=== PATIENT | male | born 1985 | race Caucasian/White ===

== ENCOUNTER 2020-10-24 16:41 | Inpatient (IN) | payer SELFPAY ==
--- NOTE | 2020-10-24 16:43 | XR_ITS ---
WS: [id number] KUB, 10/24/2020 Clinical Data: abdominal pain Comparison: None. Findings: No abnormal intraabdominal masses or calcifications are seen. There is no dilatated small bowel or ev idence of obstruction. The bladder is full. XR/XR KUB [id number] Impression: Negative KUB.
[2020-10-24 17:28] VITALS: BP 165/113; PULSE 90; RESP 19; TEMP 36.9; O2SAT 97; BMI 27.6
--- NOTE | 2020-10-24 20:18 | W.ED.ABDPA2 ---
Documented by User: DUNCAN Guo 10/24/20 22:01 HPI - Abdominal Pain General: Chief Complaint: Abdominal Pain Stated Complaint: Abd Pain Time Seen by Provider: 10/24/20 20:14 History of Present Illness: HPI narrative: Patient complains of abdominal pain since Friday. Said is not improved could constantly hurts has been able go to work. Denies fever chills constipation and diarrhea. No history of previous problems. MD elicited complaint: abdominal pain Pertinent past history: none Pain Consistency: constant Location: Diffuse Quality: cramping, aching and fullness Associated Symptoms: Reports no associated symptoms; Denies chills, fever(s), nausea and vomiting Review of Systems Const: Denies: fever(s), chills or body aches Eyes: Denies: change in vision or blurry vision ENMT: Denies: throat pain or nasal congestion Card: Denies: chest pain or dyspnea on exertion Resp: Denies: dyspnea, productive cough or non-productive cough GI: Reports: abdominal pain; Denies: nausea or vomiting : Denies: difficulty urinating Musc: Denies: extremity pain Skin/Breast: Denies: rash Neuro: Denies: headache(s) Psych: Denies: anxiety or depression Subhash/Lymph: Denies: easy bruising PFSH ED PFSH: Medical History Daily consumption of alcohol Smoking addiction Family History (Updated 10/24/20 @ 23:11 by Naeem Hewitt MD) Other Diabetes Social History (Updated 09/26/20 @ 12:20 by Magdalene Ochoa LPN) Smoking and tobacco status: current every day smoker Physical Exam Const: COMMON NORMALS: no acute distress, average body habitus and patient oriented x3 HENMT: COMMON NORMALS: normocephalic HEAD & SCALP: normal to inspection and normocephalic FACE & SINUS: normal facial exam Eye: COMMON NORMALS: conjunctivae normal GENERAL EYE: appearance normal, both eyes and all related structures CONJUNCTIVA: Yes conjunctivae normal Neck/C-Spine: COMMON NORMALS: no JVD Chest: COMMONS NORMALS: normal inspection of the chest Resp: COMMON NORMALS: normal respiratory effort and clear to auscultation bilaterally AUSCULTATION: clear to auscultation bilaterally Cardio: COMMON NORMALS: no JVD, regular rate and regular rhythm RATE: regular rate RHYTHM: regular rhythm GI: COMMON NORMALS: Normal to inspection, nondistended, normoactive bowel sounds present Extremity: COMMON NORMALS: normal to inspection and full ROM Neuro: COMMON NORMALS: patient oriented x3 Course Vital Signs: Vital signs: Vital Signs Temperature 98.5 F 10/24/20 17:28 Pulse Rate 72 10/24/20 22:11 Respiratory Rate 18 10/24/20 22:59 Blood Pressure 166/112 10/24/20 22:11 Pulse Oximetry 98 10/24/20 22:59 MDM - Abdominal Pain MDM Narrative: Medical decision making narrative: Patient now relates after lipase value came back that he does drink regularly and drinks high alcohol content has been doing that for years has not drink last couple days because he has not felt well. Lab Data: Labs: Lab Results 10/24/20 10/24/20 10/24/20 Range/Units 20:20 20:49 20:49 WBC 14.8 H (4.0-10.0) 10^3/ uL RBC 5.38 H (4.1-5.3) 10^6/u L Hgb 18.1 H (11.7-16.6) g/dL Hct 52.6 H (42.0-52.0) % MCV 97.8 H (80-94) fL MCH 33.6 (28.0-34.0) pg MCHC 34.4 (30.0-36.0) g/dL RDW 11.8 L (12.1-15.1) % Plt Count 169 (130-400) 10^3/c mm MPV 10.1 (7.4-10.4) fL Neut % (Auto) 79.3 % Lymph % (Auto) 8.8 % Lynn % (Auto) 10.6 % Eos % (Auto) 0.5 % Baso % (Auto) 0.4 % Neut # (Auto) 11.76 H (1.8-7.7) 10^3/u L Lymph # (Auto) 1.3 (0.8-4.8) 10^3/u L Lynn # (Auto) 1.6 H (0.2-0.9) 10^3/u L Eos # (Auto) 0.1 (0.0-0.8) 10^3/u L Baso # (Auto) 0.1 (0.0-0.1) 10^3/u L Nucleated RBC % (a uto) 0 % Nucleated RBCs # 0.0 /100WBC Sodium 135 L (136-145) mmol/L Potassium 4.7 (3.5-5.1) mmol/L Chloride 99 (98-107) mmol/L Carbon Dioxide 23 (22-29) mmol/L Anion Gap 17.7 (5-19) BUN 10 (6-20) mg/dL Creatinine 0.9 (0.7-1.2) mg/dL GFR Calculation 97.2 (90-130) mL/min Glucose 110 (65-115) mg/dL Calculated Osmolal ity 280 L (285-295) mOsm/k g Calcium 10.0 (8.5-10.5) mg/dL Total Bilirubin 1.1 (0.15-1.2) mg/dL AST 42 H (0-40) U/L ALT 52 H (0-41) U/L Alkaline Phosphata se 81 (40-130) IU/L Total Protein 8.0 (6.6-8.7) g/dL Albumin 4.7 (3.5-5.2) g/dL Globulin 3.3 (1.3-4.6) g/dL Lipase 4779 H (13-60) U/L Urine Color Dark yellow (Yellow) Urine Appearance Hazy A (CLEAR) Urine pH 5.0 (5-7) Ur Specific Gravit y 1.020 (1.005-1.030) Urine Protein 1+ H (Negative) Urine Glucose (UA) Norm (Normal) Urine Ketones 2+ H (Negative) Urine Blood 2+ H (Negative) Urine Nitrate Negative (Negative) Urine Bilirubin Neg (Negative) Urine Urobilinogen Norm (Negative) mg/dL Ur Leukocyte Danelle ase 1+ H (Negative) Urine RBC 0-4 H (0-2) /hpf Urine WBC 15-25 H (0-5) /hpf Ur Squamous Epith Cells 0-4 H (0-5) /hpf Amorphous Sediment Not Reportable Urine Bacteria 2+ H (NONE) /hpf Urine Mucus 2+ /hpf Discharge Plan Discharge Patient Disposition: Admitted As Inpatient Clinical Impression: Acute pancreatitis Condition: Stable Prescriptions: No Action No Known Home Medications RF: 0 Sign Out Sign Out Data: Patient Sign Out occurred on 10/24/20 at 22:35. Patient's care was discussed, and care was transferred from to Randell Joel MD, [facility] [place]. Coding Level of Care Code ED Transmission Specialist for Chg Fwd Exam Comprehensive Documented by User: Randell Joel MD, [facility] 10/24/20 23:11 HPI - Abdominal Pain General: Chief Complaint: Abdominal Pain Stated Complaint: Abd Pain Time Seen by Provider: 10/24/20 20:14 [facility], [facility] ED PFSH: Medical History Daily consumption of alcohol Smoking addiction Family History (Updated 10/24/20 @ 23:11 by Naeem Hewitt MD) Other Diabetes Social History (Updated 09/26/20 @ 12:20 by Magdalene Ochoa LPN) Smoking and tobacco status: current every day smoker Course Consultations: Consultation #1: Discussed the patient with Dr. Hewitt, hospitalist and he kindly accepted the patient to his service. Time: 22:33 Vital Signs: Vital signs: Vital Signs Temperature 98.5 F 10/24/20 17:28 Pulse Rate 72 10/24/20 22:11 Respiratory Rate 18 10/24/20 22:59 Blood Pressure 166/112 10/24/20 22:11 Pulse Oximetry 98 10/24/20 22:59 MDM - Abdominal Pain MDM Narrative: Medical decision making narrative: See the midlevel providers note for complete history and physical examination. I saw this patient and examined him also. Essentially he is a 55-year-old gentleman who drinks a lot of alcohol and developed abdominal pain 2 days ago. Pain is more in his upper abdomen and describes it as a burning sensation. No nausea or vomiting. No diarrhea. Evaluation in the emergency department shows he has acute pancreatitis but no abscess or pseudocyst formation. Lipase Markedly elevated and he is admitted to the hospitalist service for further evaluation and management. He will be treated with intravenous fluids, intravenous analgesia and bowel rest. Lab Data: Labs: Lab Results 10/24/20 10/24/20 10/24/20 Range/Units 20:20 20:49 20:49 WBC 14.8 H (4.0-10.0) 10^3/ uL RBC 5.38 H (4.1-5.3) 10^6/u L Hgb 18.1 H (11.7-16.6) g/dL Hct 52.6 H (42.0-52.0) % MCV 97.8 H (80-94) fL MCH 33.6 (28.0-34.0) pg MCHC 34.4 (30.0-36.0) g/dL RDW 11.8 L (12.1-15.1) % Plt Count 169 (130-400) 10^3/c mm MPV 10.1 (7.4-10.4) fL Neut % (Auto) 79.3 % Lymph % (Auto) 8.8 % Lynn % (Auto) 10.6 % Eos % (Auto) 0.5 % Baso % (Auto) 0.4 % Neut # (Auto) 11.76 H (1.8-7.7) 10^3/u L Lymph # (Auto) 1.3 (0.8-4.8) 10^3/u L Lynn # (Auto) 1.6 H (0.2-0.9) 10^3/u L Eos # (Auto) 0.1 (0.0-0.8) 10^3/u L Baso # (Auto) 0.1 (0.0-0.1) 10^3/u L Nucleated RBC % (a uto) 0 % Nucleated RBCs # 0.0 /100WBC Sodium 135 L (136-145) mmol/L Potassium 4.7 (3.5-5.1) mmol/L Chloride 99 (98-107) mmol/L Carbon Dioxide 23 (22-29) mmol/L Anion Gap 17.7 (5-19) BUN 10 (6-20) mg/dL Creatinine 0.9 (0.7-1.2) mg/dL GFR Calculation 97.2 (90-130) mL/min Glucose 110 (65-115) mg/dL Calculated Osmolal ity 280 L (285-295) mOsm/k g Calcium 10.0 (8.5-10.5) mg/dL Total Bilirubin 1.1 (0.15-1.2) mg/dL AST 42 H (0-40) U/L ALT 52 H (0-41) U/L Alkaline Phosphata se 81 (40-130) IU/L Total Protein 8.0 (6.6-8.7) g/dL Albumin 4.7 (3.5-5.2) g/dL Globulin 3.3 (1.3-4.6) g/dL Lipase 4779 H (13-60) U/L Urine Color Dark yellow (Yellow) Urine Appearance Hazy A (CLEAR) Urine pH 5.0 (5-7) Ur Specific Gravit y 1.020 (1.005-1.030) Urine Protein 1+ H (Negative) Urine Glucose (UA) Norm (Normal) Urine Ketones 2+ H (Negative) Urine Blood 2+ H (Negative) Urine Nitrate Negative (Negative) Urine Bilirubin Neg (Negative) Urine Urobilinogen Norm (Negative) mg/dL Ur Leukocyte Danelle ase 1+ H (Negative) Urine RBC 0-4 H (0-2) /hpf Urine WBC 15-25 H (0-5) /hpf Ur Squamous Epith Cells 0-4 H (0-5) /hpf Amorphous Sediment Not Reportable Urine Bacteria 2+ H (NONE) /hpf Urine Mucus 2+ /hpf Discharge Plan Discharge Patient Disposition: Admitted As Inpatient Clinical Impression: Acute pancreatitis Condition: Stable Prescriptions: No Action No Known Home Medications RF: 0 Sign Out Sign Out Data: Patient Sign Out occurred on 10/24/20 at 22:35. Patient's care was discussed, and care was transferred from to Randell Joel MD, [facility] [place]. Coding Level of Care Code ED Transmission Specialist for Gin Fwd Exam Comprehensive
[2020-10-24 20:43] LABS: Glucose Urine UA Norm (Normal); Protein Urine 1+ (Negative); Urine Appearance Hazy (CLEAR); Urine Color Dark Yellow (Yellow)
[2020-10-24 20:44] LABS: Add Urine Microscopic? YES; Bacteria Urine 2+ /hpf; Bilirubin Urine Neg (Negative); Blood Urine 2+ (Negative); Ketones Urine 2+ (Negative); Leukocyte Esterase Urine 1+ (Negative); Mucus Urine 2+ /hpf; Nitrate Urine Negative (Negative); RBC Urine 0-4 /hpf (0-2); Squamous Epithelial Cell Urine 0-4 /hpf (0-5); Urobilinogen Urine Norm (Negative); WBC Urine 15-25 /hpf (0-5)
[2020-10-24 20:46] LABS: Add Urine Culture? Yes
--- NOTE | 2020-10-24 20:51 | CTR_ITS ---
PROCEDURE INFORMATION: Exam: CT Abdomen And Pelvis With Contrast Exam date and time: 10/24/2020 9:20 PM Age: 35 years old Clinical indication: Abdominal pain; Patient HX: Ruq pain x 3 days; Additional info: Abd pain, hematuria TECHNIQUE: Imaging protocol: Computed tomography of the abdomen and pelvis with intravenous contrast. Total images: 227 Radiation optimization: All CT scans at this facility use at least one of these dose optimization techniques: automated exposure control; mA and/or kV adjustment per patient size (includes targeted exams where dose is matched to clinical indication); or iterative reconstruction. Contrast material: OMNI 300; Contrast volume: 95 ml; Contrast route: INTRAVENOUS (IV); COMPARISON: CR XR KUB [id number] 10/24/2020 4:57 PM RADIATION DOSE METRICS: Total DLP (mGy-cm): 427.03 FINDINGS: Lungs: Limited assessment of the lung bases fails to reveal evidence for active cardiopulmonary process. Liver: Moderate diffuse fatty infiltration of the liver. No visible hepatic mass or cystic structure. Gallbladder and bile ducts: Partial hepatization of the gallbladder. No visible form cholelithiasis. No visible intra or extrahepatic biliary ectasia. Pancreas: Examination reveals evidence of grade 2/5 acute pancreatitis. No visible pseudocyst formation. No associated pancreatic ductal ectasia. No visible choledocholithiasis. Moderate peripancreatic fat inflammatory phlegmonous response. Spleen: Spleen unremarkable. Adrenal glands: Adrenal glands unremarkable. Kidneys and ureters: No hydronephrosis or perinephric fluid. No visible nephrolithiasis. No visible ureterolithiasis. Stomach and bowel: Moderate reactive duodenitis. Nonobstructive bowel pattern. No visible significant generalized adynamic or reactive ileus. Appendix: No evidence of appendicitis. Intraperitoneal space: No visible intraperitoneal ascites. No visible pneumoperitoneum. Vasculature: The abdominal aorta is nonaneurysmal. Portal vein patent. No visible superior mesenteric vein thrombosis. Lymph nodes: Unremarkable. No enlarged lymph nodes. Urinary bladder: Urinary bladder unremarkable. Reproductive: Unremarkable as visualized. Bones/joints: No visible active or acute osseous pathology. Soft tissues: Unremarkable. CT/CT abdomen pelvis w con* [id number] IMPRESSION: 1. Examination reveals evidence of grade 2/5 acute pancreatitis. No visible pseudocyst formation. 2. Moderate peripancreatic fat inflammatory phlegmonous response. 3. Moderate reactive duodenitis. 4. Moderate diffuse fatty infiltration of the liver. 5. Partial hepatization of the gallbladder without formed cholelithiasis. Radiation Dose CTDIVOL = (mGy): DLP = 427.03 (mGy-cm)
[2020-10-24 20:58] LABS: Basophils # 0.1 10^3/uL (0.0-0.1); Basophils % 0.4 %; Eosinophils # 0.1 10^3/uL (0.0-0.8); Eosinophils % 0.5 %; Hematocrit 52.6 % (42.0-52.0); Hemoglobin 18.1 g/dL (11.7-16.6); Lymphocytes # 1.3 10^3/uL (0.8-4.8); Lymphocytes % 8.8 %; Mean Corpuscular HGB Conc 34.4 g/dL (30.0-36.0); Mean Corpuscular Hemoglobin 33.6 pg (28.0-34.0); Mean Corpuscular Volume 97.8 fL (80-94); Mean Platelet Volume 10.1 fL (7.4-10.4); Monocytes # 1.6 10^3/uL (0.2-0.9); Monocytes % 10.6 %; Neutrophils # 11.76 10^3/uL (1.8-7.7); Neutrophils % 79.3 %; Nucleated Red Blood Cells % 0 %; Platelet Count 169 10^3/cmm (130-400); Red Blood Count 5.38 10^6/uL (4.1-5.3); Red Cell Distribution Width 11.8 % (12.1-15.1); White Blood Count 14.8 10^3/uL (4.0-10.0)
[2020-10-24] MEDS: cefTRIAXone 1,000 MG in sodium chloride 0.9% (plus) 50 ML 100 MG IV (21:17)
[2020-10-24] MEDS: ketorolac 60 mg/2 mL INJ 30 MG IVP (21:17)
[2020-10-24 21:22] LABS: Alanine Aminotransferase 52 U/L (0-41); Albumin Level 4.7 g/dL (3.5-5.2); Alkaline Phosphatase 81 IU/L (40-130); Aspartate Amino Transferase 42 U/L (0-40); Blood Urea Nitrogen 10 mg/dL (6-20); Carbon Dioxide 23 mmol/L (22-29); Chloride 99 mmol/L (98-107); Globulin 3.3 g/dL (1.3-4.6); Glomerular Filtration Rate 97.2 mL/min (90-130); Glucose 110 mg/dL (65-115); Osmolality Calculated 280 mOsm/kg (285-295); Sodium 135 mmol/L (136-145); Total Bilirubin 1.1 mg/dL (0.15-1.2)
[2020-10-24 21:38] LABS: Anion Gap 17.7 (5-19); Lipase 4779 U/L (13-60); Potassium 4.7 mmol/L (3.5-5.1)
[2020-10-24] MEDS: iohexol 300 mg/mL 100 mL Btl IV (21:47)
[2020-10-24] MEDS: sodium chloride 0.9% 1,000 ML 999 ML IV (22:07)
[2020-10-24 22:09] VITALS: RESP 18; O2SAT 98
[2020-10-24] MEDS: morphine 4 mg/mL SDV 1 mL IVP (22:09)
[2020-10-24] MEDS: ondansetron 2 mg/ML SDV 2 mL 4 MG IVP (22:09)
[2020-10-24 22:11] VITALS: BP 166/112; PULSE 72; RESP 18; O2SAT 99
[2020-10-24 22:59] VITALS: RESP 18; O2SAT 98
[2020-10-24] MEDS: HYDROmorphone 1 mg/mL INJ 1 mL IVP (22:59)
--- NOTE | 2020-10-24 23:09 | P.HP_ITS ---
Providers/Chief Complaint Chief Complaint: Abd Pain History of Present Illness 35-year-old gentleman without much significant past medical history, but with noted daily alcohol intake, and current smoker presented to ER due to worsening of abdominal pain, mostly epigastric, currently about 7/10, so far having received multiple medications for treatment including Dilaudid, morphine, Torad ol. He reports has been having some intermittent episodes of vomiting in the morning since Friday. Denies any diarrhea. Denies cough, shortness of breath, sore throat runny nose. In ER he is noted afebrile, with leukocytosis 14.8, sodium 135, AST 42, ALT 52, T bili 1.1, alk phos 81. Lipase 4779. Urine noted with negative nitrate, 0-4 RBC, 13-25 WBC, 2+ bacteria. He feels like he may have had some burning in the left flank in addition to epigastric pain. CT abdomen pelvis was performed with finding of grade 2/5 acute pancreatitis, no pseudocyst formation. Moderate peripancreatic fat inflammatory phlegmonous response. Moderate reactive duodenitis. Moderate diffuse fatty infiltration of the liver. Partial apposition of the gallbladder without formed cholelithiasis. No visible intra or extrahepatic biliary ectasia. She denies any prior episodes of pancreatitis. He does state he is been drinking mostly beer and it varies how much he drinks. He does say that during the holidays it has been more. Per report patient's notified ER physician that he is not had any alcohol in 2 days due to feeling unwell. Review of Systems Const: Denies: fever(s), chills, body aches or malaise Eyes: Denies: change in vision or eye redness ENMT: Denies: throat pain, oral sores or ear or mastoid pain Card: Denies: chest pain, edema, pre-syncope or dyspnea on exertion Resp: Denies: dyspnea, productive cough, change in phlegm color or hemoptysis GI: Reports: abdominal pain, nausea and vomiting; Denies: diarrhea, constipation, hematochezia or melena : Reports: flank pain; Denies: difficulty urinating, urinary frequency or hematuria Musc: Denies: back pain, joint swelling or joint redness Skin/Breast: Denies: rash, sores or new lesions Neuro: Denies: headache(s), numbness in extremities, weakness in extremities, dizziness, confusion or seizure-like activity Endo: Denies: polyuria or polydipsia Subhash/Lymph: Denies: easy bleeding or purpura All/Imm: Denies: urticaria, throat swelling or tongue swelling Medications/Allergies Home Medications Medication Instructions Recorded Confirmed Last Taken Type No Known Home Medications 09/26/20 Unknown History Allergies Allergy/AdvReac Type Severity Reaction Status Date / Time No Known Allergies Allergy Verified 09/26/20 12:19 PFSH Acute PFSH: Medical History Daily consumption of alcohol Smoking addiction Family History (Updated 10/24/20 @ 23:11 by Naeem Hewitt MD) Other Diabetes Social History Smoking and tobacco status: current every day smoker Alcohol intake: current Alcohol intake frequency: other Alcohol type: beer and hard liquor Lives independently: Yes Current occupational status: employed Vitals/I&O/Wt Last Vital Signs Temp 98.5 F 10/24/20 17:28 Pulse 72 10/24/20 22:11 Resp 18 10/24/20 22:59 BP 166/112 10/24/20 22:11 Pulse Ox 98 10/24/20 22:59 Weight last 48 hrs Weight 79.832 kg Physical Exam Const: COMMON NORMALS: no acute distress and patient oriented x3 GENERAL APPEARANCE: disheveled HENMT: COMMON NORMALS: oropharynx normal Neck/C-Spine: COMMON NORMALS: no JVD Resp: COMMON NORMALS: normal respiratory effort and clear to auscultation bilaterally AUSCULTATION: clear to auscultation bilaterally Cardio: COMMON NORMALS: no JVD, regular rhythm, S1 normal heart sound present, S2 normal heart sound present and No murmurs present (Cardio) RHYTHM: regular rhythm HEART SOUNDS: S1 normal heart sound present and S2 normal heart sound present GI: COMMON NORMALS: Normal to inspection, nondistended, normoactive bowel sounds present and Soft to palpation PALPATION: Yes Soft to palpation and Yes Tenderness to palpation present (GI) (Most severe epigastric, but with tenderness all over) Extremity: COMMON NORMALS: no joint enlargement and no pedal edema Neuro: COMMON NORMALS: patient oriented x3 and moves all extremities Skin: COMMON NORMALS: no rashes or lesions noted GENERAL SKIN EXAM: no rashes or lesions noted Data : 10/24/20 20:49 10/24/20 20:49 A&P Assessment and plan (1) Acute pancreatitis: Appears to have nonobstructive pancreatitis, most likely related to alcohol consumption. There is some fatty liver infiltration. Hepatization of gallbladder. No formation of stones noted. No extra or intrahepatic biliary dilation. Will assess more closely with gallbladder ultrasound, although obstruction not suggested by his liver parameters. Calcium appears normal. Will check also triglycerides. Discussed with him most likely suspected etiologies. Risk of recurrence of pancreatitis with continuation of alcohol consumption. He verbalized understanding. Will request case management to provide additional options to help with cessation as discussed with him in case he is interested. At this time discussed with him we will maintain bowel rest. IV hydration. Recheck lipase. Supportive care for pain, nausea. Status: Acute Qualifiers: Acute pancreatitis complication: no infection or necrosis Pancreatitis type: alcohol induced Qualified Code(s): K85.20 - Alcohol induced acute pancreatitis without necrosis or infection (2) UTI (urinary tract infection): Rocephin. Follow urinary culture. No obstruction noted on CT. Status: Acute (3) Daily consumption of alcohol: Discussed with him risk of recurrent pancreatitis. Encouraged alcohol cessation. He verbalized understanding. Says it has been more difficult over the holidays to reduce consumption. Case management help with resources that may aid cessation. Reportedly has not drank in 2 days. Monitor for withdrawal. [facility] protocol. Status: Acute (4) Smoking addiction: Encourage cessation. Nicotine replacement as needed. Status: Acute Additional A&P Information Reactive duodenitis: Famotidine, Zofran as needed Attestations Medical Necessity Statement*: Admission of over 2 midnights is going to be needed for assessment and management of acute pancreatitis, with newly alcohol consumption risk of alcohol withdrawal. Coding Level of Care Code Acute Supervisor [employer] Dietary Service for [facility] Diagnoses Acute pancreatitis K85.20 Acute pancreatitis complication: no infection or necrosis Pancreatitis type: alcohol induced UTI (urinary tract infection) N39.0 Daily consumption of alcohol Z78.9 Smoking addiction F17.200
[2020-10-24] MEDS: nicotine 21 mg Patch 1 PATCH TRANSDERMA (23:40)
[2020-10-25] VITALS (11 sets, daily range): BP systolic 142–171; BP diastolic 67–112; PULSE 81–95; RESP 14–20; TEMP 36.4–37.2; O2SAT 96–98
--- NOTE | 2020-10-25 01:09 | US_ITS ---
WS: [id number] RIGHT UPPER QUADRANT ULTRASOUND HISTORY: hepatobiliary - acute pancreatitis COMPARISON: None available. Liver: 14.8 cm in length. Normal size liver. Coarsened echotexture with no discrete mass. No bile regina t dilatation. Gallbladder: Normally distended gallbladder with no stones or wall thickening. CBD: 0.4 cm Pancreas: Not very well visualized. Portion of the pancreas visualized is enlarged and edematous cons istent with a history of pancreatitis. Right kidney: 9.9 cm in length. Normal size and echogenicity. No hydronephrosis or mass. Aorta and IVC: Unremarkable abdominal aorta and IVC. No ascites. US/US abdomen limited [id number] IMPRESSION: 1. Normal gallbladder. 2. Pancreas not visualized. 3. Moderate hepatic steatosis.
[2020-10-25] MEDS: heparin 5,000 unit/mL INJ 1 mL 5000 UNIT SUBCUT ×2 (03:42→11:59)
[2020-10-25] MEDS: lactated ringers 1,000 ML 150 ML IV ×3 (03:44→19:00)
[2020-10-25] MEDS: famotidine 20 mg/2 mL INJ IVP ×2 (03:44→11:59)
[2020-10-25] MEDS: ondansetron 2 mg/ML SDV 2 mL 4 MG IVP (03:45)
[2020-10-25] MEDS: morphine 4 mg/mL SDV 1 mL IVP ×2 (03:45→06:19)
[2020-10-25 06:29] LABS: Basophils # 0.1 10^3/uL (0.0-0.1); Basophils % 0.3 %; Eosinophils # 0.1 10^3/uL (0.0-0.8); Eosinophils % 0.4 %; Hematocrit 49.2 % (42.0-52.0); Hemoglobin 16.9 g/dL (11.7-16.6); Lymphocytes % 5.5 %; Mean Corpuscular HGB Conc 34.3 g/dL (30.0-36.0); Mean Corpuscular Hemoglobin 34.1 pg (28.0-34.0); Mean Corpuscular Volume 99.4 fL (80-94); Mean Platelet Volume 10.4 fL (7.4-10.4); Monocytes # 1.7 10^3/uL (0.2-0.9); Monocytes % 9.7 %; Neutrophils # 14.48 10^3/uL (1.8-7.7); Neutrophils % 83.5 %; Nucleated Red Blood Cells % 0 %; Platelet Count 162 10^3/cmm (130-400); Red Blood Count 4.95 10^6/uL (4.1-5.3); Red Cell Distribution Width 11.9 % (12.1-15.1); White Blood Count 17.3 10^3/uL (4.0-10.0)
[2020-10-25 06:47] LABS: Triglycerides 65 mg/dL (0-150)
--- NOTE | 2020-10-25 07:38 | PC.NURSE ---
I reported the high bp to the nurse 153/103
[2020-10-25 07:56] LABS: Alanine Aminotransferase 39 U/L (0-41); Albumin Level 4.1 g/dL (3.5-5.2); Alkaline Phosphatase 74 IU/L (40-130); Anion Gap 19.2 (5-19); Aspartate Amino Transferase 29 U/L (0-40); Blood Urea Nitrogen 11 mg/dL (6-20); Calcium 9.3 mg/dL (8.5-10.5); Carbon Dioxide 21 mmol/L (22-29); Chloride 101 mmol/L (98-107); Glomerular Filtration Rate 97.2 mL/min (90-130); Glucose 99 mg/dL (65-115); Osmolality Calculated 283 mOsm/kg (285-295); Potassium 4.2 mmol/L (3.5-5.1); Sodium 137 mmol/L (136-145); Total Bilirubin 0.9 mg/dL (0.15-1.2); Total Protein 7.1 g/dL (6.6-8.7)
[2020-10-25] MEDS: folic acid 1 mg Tablet PO (08:41)
[2020-10-25] MEDS: thiamine 100 mg Tablet PO (08:41)
[2020-10-25] MEDS: multivitamin therapeutic Tablet 1 TAB PO (08:41)
[2020-10-25 08:48] LABS: Lipase 3873 U/L (13-60)
[2020-10-25] MEDS: HYDROmorphone 1 mg/mL INJ 1 mL IVP ×4 (09:16→23:13)
--- NOTE | 2020-10-25 10:13 | PC.RESP ---
Smoking Cessation information sent to patient.
--- NOTE | 2020-10-25 12:44 | PM.PN ---
Subjective Subjective: Interval history: Patient was examined this morning he tells me that he continues to have diffuse abdominal pain, no nausea, no vomiting, no fevers, no diarrhea, his last alcohol drink was 2 days ago, which was a sixpack of beer, he tells me that he is having minor episodes similar to this in the past, he thinks he has had pancreatitis in the past, but has never sought medical care Vitals/I&O/Wt Last Vital Signs Temp 97.5 F L 10/25/20 11:16 Pulse 95 10/25/20 11:16 Resp 18 10/25/20 11:16 BP 164/96 10/25/20 12:35 Pulse Ox 98 10/25/20 11:16 10/24/20 10/25/20 10/25/20 22:59 06:59 14:59 Intake Total 0 / 0 1000 / 1000 Balance 0 / 0 1000 / 1000 Weight last 48 hrs Weight 79.832 kg Physical Exam Const: COMMON NORMALS: no acute distress and patient oriented x3 HENMT: COMMON NORMALS: normocephalic HEAD & SCALP: normocephalic Neck/C-Spine: COMMON NORMALS: no JVD Resp: COMMON NORMALS: normal respiratory effort, No retractions, No use of accessory muscles and clear to auscultation bilaterally AUSCULTATION: clear to auscultation bilaterally Cardio: COMMON NORMALS: no JVD, regular rate, regular rhythm, S1 normal heart sound present and S2 normal heart sound present RATE: regular rate RHYTHM: regular rhythm HEART SOUNDS: S1 normal heart sound present and S2 normal heart sound present GI: COMMON NORMALS: Soft to palpation INSPECTION: Yes normal to inspection and Yes abdominal distension AUSCULTATION: Yes Hyperactive bowel sounds present PALPATION: Yes Soft to palpation, No Firmness to palpation present (GI), Yes Tenderness to palpation present (GI) (Generalized tenderness), No Guarding due to palpation present (GI), No Rigid due to palpation and No Hepatosplenomegaly present Extremity: COMMON NORMALS: capillary refill normal, no clubbing, cyanosis or edema, no calf tenderness and no pedal edema Neuro: COMMON NORMALS: patient oriented x3 Psych: COMMON NORMALS: mental status grossly normal Data : 10/25/20 06:00 10/25/20 06:00 A&P Assessment and plan (1) Acute pancreatitis: -Alcoholic pancreatitis -No intra or extrahepatic biliary dilatation -Calcium within normal, triglycerides -Lipase 373 PLAN: -Continue IV fluids -Pain control with Dilaudid -Zofran for nausea -N.p.o., will consider tube feeds based on clinical progress -Hold off on antibiotic coverage -Monitor lipase, serial abdominal exams Status: Acute Qualifiers: Acute pancreatitis complication: no infection or necrosis Pancreatitis type: alcohol induced Qualified Code(s): K85.20 - Alcohol induced acute pancreatitis without necrosis or infection (2) UTI (urinary tract infection): Rocephin. Follow urinary culture. No obstruction noted on CT. Status: Acute (3) Daily consumption of alcohol: -[facility] protocol Status: Acute (4) Smoking addiction: Encourage cessation. Nicotine replacement as needed. Status: Acute Additional A&P Information Reactive duodenitis: Famotidine, Zofran as needed Attestations Medical Necessity Statement*: Patient requires hospitalization for acute pancreatitis, UTI Coding Level of Care Code Acute Buckle Attacher for [facility] Diagnoses Acute pancreatitis K85.20 Acute pancreatitis complication: no infection or necrosis Pancreatitis type: alcohol induced UTI (urinary tract infection) N39.0 Daily consumption of alcohol Z78.9 Smoking addiction F17.200
[2020-10-25] MEDS: nicotine 2 mg Gum BUCCAL (17:27)
[2020-10-25] MEDS: labetalol 5 mg/mL SDV 20mL 10 MG IVP (19:00)
--- NOTE | 2020-10-25 19:10 | PC.NURSE ---
Bedside report given to Azeb Webb RN.
[2020-10-25] MEDS: cefTRIAXone 1,000 MG in sodium chloride 0.9% (plus) 50 ML 100 MG IV (21:34)
[2020-10-26] VITALS (11 sets, daily range): BP systolic 133–161; BP diastolic 80–100; PULSE 85–95; RESP 15–24; TEMP 36.7–37.6; O2SAT 95–97
[2020-10-26] MEDS: heparin 5,000 unit/mL INJ 1 mL 5000 UNIT SUBCUT ×2 (01:03→14:20)
[2020-10-26] MEDS: famotidine 20 mg/2 mL INJ IVP ×2 (01:03→14:20)
[2020-10-26] MEDS: lactated ringers 1,000 ML 150 ML IV ×3 (02:00→17:17)
[2020-10-26] MEDS: HYDROmorphone 1 mg/mL INJ 1 mL IVP ×5 (03:48→20:40)
[2020-10-26 06:01] LABS: Basophils # 0.1 10^3/uL (0.0-0.1); Basophils % 0.4 %; Eosinophils # 0.2 10^3/uL (0.0-0.8); Eosinophils % 0.8 %; Hematocrit 45.5 % (42.0-52.0); Hemoglobin 15.4 g/dL (11.7-16.6); Lymphocytes # 1.1 10^3/uL (0.8-4.8); Lymphocytes % 5.3 %; Mean Corpuscular HGB Conc 33.8 g/dL (30.0-36.0); Mean Corpuscular Hemoglobin 33.5 pg (28.0-34.0); Mean Corpuscular Volume 98.9 fL (80-94); Mean Platelet Volume 11.3 fL (7.4-10.4); Monocytes # 1.8 10^3/uL (0.2-0.9); Neutrophils % 83.8 %; Nucleated Red Blood Cells % 0 %; Platelet Count 132 10^3/cmm (130-400); Red Cell Distribution Width 11.8 % (12.1-15.1); White Blood Count 19.8 10^3/uL (4.0-10.0)
[2020-10-26 06:07] LABS: INR 1.09 (0.8-1.2)
[2020-10-26 07:02] LABS: Alanine Aminotransferase 22 U/L (0-41); Albumin Level 3.5 g/dL (3.5-5.2); Alkaline Phosphatase 64 IU/L (40-130); Anion Gap 15.2 (5-19); Aspartate Amino Transferase 19 U/L (0-40); Blood Urea Nitrogen 10 mg/dL (6-20); C Reactive Protein 249.7 mg/L (0.0-4.9); Calcium 8.5 mg/dL (8.5-10.5); Carbon Dioxide 24 mmol/L (22-29); Chloride 100 mmol/L (98-107); Globulin 2.5 g/dL (1.3-4.6); Glomerular Filtration Rate 111.3 mL/min (90-130); Glucose 87 mg/dL (65-115); Magnesium 1.8 mg/dL (1.7-2.3); Osmolality Calculated 278 mOsm/kg (285-295); Potassium 4.2 mmol/L (3.5-5.1); Sodium 135 mmol/L (136-145); Total Bilirubin 0.6 mg/dL (0.15-1.2)
[2020-10-26 07:09] LABS: Procalcitonin 0.13 ng/mL (0-0.5)
[2020-10-26 07:21] LABS: Creatine Phosphokinase 75 U/L (39-308)
[2020-10-26 07:29] LABS: Lipase 757 U/L (13-60)
[2020-10-26] MEDS: folic acid 1 mg Tablet PO (07:51)
[2020-10-26] MEDS: multivitamin therapeutic Tablet 1 TAB PO (07:51)
[2020-10-26] MEDS: thiamine 100 mg Tablet PO (07:51)
[2020-10-26] MEDS: piperacillin-tazobactam 3.375 GM in sodium chloride 0.9% (plus) 50 ML IV ×2 (09:27→17:16)
--- NOTE | 2020-10-26 12:01 | P.PN_ITS ---
Subjective Subjective: Interval history: Patient was examined this morning, he continues to have diffuse abdominal pain, has not had a bowel movement yet, no nausea, no vomiting, no fevers, Dilaudid does help for pain, his abdomen does feel less distended he tells me Vitals/I&O/Wt Last Vital Signs Temp 98.5 F 10/26/20 08:56 Pulse 88 10/26/20 08:56 Resp 15 10/26/20 08:56 BP 150/91 10/26/20 08:56 Pulse Ox 95 10/26/20 08:56 10/25/20 10/26/20 10/26/20 22:59 06:59 14:59 Intake Total 1000 / 2000 1000 / 3000 1000 / 1000 Output Total 300 / 300 Balance 1000 / 1700 1000 / 2700 700 / 700 Weight last 48 hrs Weight 80.694 kg Weight 78.562 kg Weight 79.832 kg Physical Exam Const: COMMON NORMALS: no acute distress and patient oriented x3 HENMT: COMMON NORMALS: normocephalic HEAD & SCALP: normocephalic Neck/C-Spine: COMMON NORMALS: no JVD Resp: COMMON NORMALS: normal respiratory effort, No retractions, No use of accessory muscles and clear to auscultation bilaterally AUSCULTATION: clear to auscultation bilaterally Cardio: COMMON NORMALS: no JVD, regular rate, regular rhythm, S1 normal heart sound present and S2 normal heart sound present RATE: regular rate RHYTHM: regular rhythm HEART SOUNDS: S1 normal heart sound present and S2 normal heart sound present GI: COMMON NORMALS: Normal to inspection, nondistended, normoactive bowel sounds present, Soft to palpation, no masses and no bruits INSPECTION: Yes normal to inspection, No abdominal wall ecchymosis and Yes abdominal distension AUSCULTATION: Yes Hyperactive bowel sounds present PALPATION: Yes Soft to palpation, No Firmness to palpation present (GI), Yes Tenderness to palpation present (GI) Details: LLQ, RLQ, LUQ and RUQ, No Guarding due to palpation present (GI) and No Rigid due to palpation Extremity: COMMON NORMALS: capillary refill normal, no clubbing, cyanosis or edema, no calf tenderness and no pedal edema Neuro: COMMON NORMALS: patient oriented x3 Psych: COMMON NORMALS: mental status grossly normal Data : 10/26/20 05:02 10/26/20 05:02 Micro: Microbiology 10/24/20 20:20 Urine Culture - Preliminary Urine,Clean Catch A&P Assessment and plan (1) Acute pancreatitis: -Alcoholic pancreatitis -No intra or extrahepatic biliary dilatation -Calcium within normal, triglycerides -Lipase 757 PLAN: -Continue IV fluids -Pain control with Dilaudid -Zofran for nausea -We will change to Zosyn for antibiotic coverage given leukocytosis -N.p.o., will consider TPN based on clinical progress -Monitor lipase, serial abdominal exams Status: Acute Qualifiers: Acute pancreatitis complication: no infection or necrosis Pancreatitis type: alcohol induced Qualified Code(s): K85.20 - Alcohol induced acute pancreatitis without necrosis or infection (2) UTI (urinary tract infection): Switch to Zosyn. Follow urinary culture. No obstruction noted on CT. Status: Acute (3) Daily consumption of alcohol: -[facility] protocol Status: Acute (4) Smoking addiction: Encourage cessation. Nicotine replacement as needed. Status: Acute Additional A&P Information Reactive duodenitis: Famotidine, Zofran as needed Attestations Medical Necessity Statement*: Patient requires hospitalization, for acute pancreatitis, UTI Coding Level of Care Code Acute Assembler Corncob Pipes for [facility] Diagnoses Acute pancreatitis K85.20 Acute pancreatitis complication: no infection or necrosis Pancreatitis type: alcohol induced UTI (urinary tract infection) N39.0 Daily consumption of alcohol Z78.9 Smoking addiction F17.200
[2020-10-26] MEDS: nicotine 21 mg Patch 1 PATCH TRANSDERMA (12:02)
[2020-10-27] VITALS (12 sets, daily range): BP systolic 150–172; BP diastolic 76–101; PULSE 81–93; RESP 16–22; TEMP 36.6–37.6; O2SAT 93–96
[2020-10-27] MEDS: HYDROmorphone 1 mg/mL INJ 1 mL IVP ×6 (00:40→21:19)
[2020-10-27] MEDS: piperacillin-tazobactam 3.375 GM in sodium chloride 0.9% (plus) 50 ML IV ×3 (02:06→17:30)
[2020-10-27] MEDS: famotidine 20 mg/2 mL INJ IVP ×2 (02:06→13:10)
[2020-10-27] MEDS: heparin 5,000 unit/mL INJ 1 mL 5000 UNIT SUBCUT ×2 (02:06→13:08)
[2020-10-27] MEDS: lactated ringers 1,000 ML 150 ML IV ×2 (04:30→13:14)
[2020-10-27 05:10] LABS: Basophils # 0.1 10^3/uL (0.0-0.1); Basophils % 0.3 %; Eosinophils % 0.2 %; Hematocrit 41.6 % (42.0-52.0); Hemoglobin 14.3 g/dL (11.7-16.6); Lymphocytes # 1.1 10^3/uL (0.8-4.8); Lymphocytes % 5.5 %; Mean Corpuscular HGB Conc 34.4 g/dL (30.0-36.0); Mean Corpuscular Hemoglobin 33.6 pg (28.0-34.0); Mean Corpuscular Volume 97.7 fL (80-94); Mean Platelet Volume 11.2 fL (7.4-10.4); Monocytes # 2.1 10^3/uL (0.2-0.9); Monocytes % 10.4 %; Neutrophils % 82.7 %; Nucleated Red Blood Cells % 0 %; Platelet Count 130 10^3/cmm (130-400); Red Blood Count 4.26 10^6/uL (4.1-5.3); Red Cell Distribution Width 11.4 % (12.1-15.1)
[2020-10-27 05:35] LABS: Alanine Aminotransferase 19 U/L (0-41); Albumin Level 3.4 g/dL (3.5-5.2); Alkaline Phosphatase 84 IU/L (40-130); Aspartate Amino Transferase 18 U/L (0-40); Blood Urea Nitrogen 11 mg/dL (6-20); C Reactive Protein 347.6 mg/L (0.0-4.9); Calcium 8.7 mg/dL (8.5-10.5); Carbon Dioxide 24 mmol/L (22-29); Chloride 97 mmol/L (98-107); Globulin 2.7 g/dL (1.3-4.6); Glomerular Filtration Rate 129.9 mL/min (90-130); Glucose 88 mg/dL (65-115); Magnesium 1.8 mg/dL (1.7-2.3); Osmolality Calculated 273 mOsm/kg (285-295); Phosphorus 2.3 mg/dL (2.5-4.5); Sodium 132 mmol/L (136-145); Total Bilirubin 0.8 mg/dL (0.15-1.2); Total Protein 6.1 g/dL (6.6-8.7)
[2020-10-27 05:36] LABS: INR 1.12 (0.8-1.2); Lipase 123 U/L (13-60)
[2020-10-27 05:47] LABS: Procalcitonin 0.64 ng/mL (0-0.5)
[2020-10-27 05:58] LABS: Creatine Phosphokinase 60 U/L (39-308)
[2020-10-27] MEDS: multivitamin therapeutic Tablet 1 TAB PO (09:14)
[2020-10-27] MEDS: thiamine 100 mg Tablet PO (09:14)
[2020-10-27] MEDS: folic acid 1 mg Tablet PO (09:14)
[2020-10-27] MEDS: HYDROcodone-acetaminophen 5-325 mg Tablet 1 TAB PO ×2 (11:06→20:05)
--- NOTE | 2020-10-27 14:58 | P.PN_ITS ---
Subjective Subjective: Interval history: This morning patient was examined, he tells me that he is doing better, is able to sit up to the side of the bed, does tell me that more of his flanks are hurting him today, he would like something for breakthrough pain Vitals/I&O/Wt Last Vital Signs Temp 97.8 F 10/27/20 11:07 Pulse 87 10/27/20 11:07 Resp 17 10/27/20 13:13 BP 168/101 10/27/20 11:07 Pulse Ox 94 10/27/20 13:13 10/26/20 10/27/20 10/27/20 22:59 06:59 14:59 Intake Total 1050 / 2100 1050 / 3150 1000 / 1000 Output Total 240 / 540 200 / 200 Balance 1050 / 1800 810 / 2610 800 / 800 Weight last 48 hrs Weight 80.683 kg Weight 80.694 kg Physical Exam Const: COMMON NORMALS: no acute distress and patient oriented x3 HENMT: COMMON NORMALS: normocephalic HEAD & SCALP: normocephalic Neck/C-Spine: COMMON NORMALS: no JVD Resp: COMMON NORMALS: normal respiratory effort, No retractions, No use of accessory muscles and clear to auscultation bilaterally AUSCULTATION: clear to auscultation bilaterally Cardio: COMMON NORMALS: no JVD, regular rate, regular rhythm, S1 normal heart sound present and S2 normal heart sound present RATE: regular rate RHYTHM: regular rhythm HEART SOUNDS: S1 normal heart sound present and S2 normal heart sound present GI: INSPECTION: Yes normal to inspection and Yes abdominal distension AUSCULTATION: Yes normoactive bowel sounds PALPATION: Yes Tenderness to palpation present (GI) Details: LLQ, RLQ, LUQ and RUQ Extremity: COMMON NORMALS: capillary refill normal, no clubbing, cyanosis or edema, no calf tenderness and no pedal edema Neuro: COMMON NORMALS: patient oriented x3 Psych: COMMON NORMALS: mental status grossly normal Data : 10/27/20 04:32 10/27/20 04:32 Micro: Microbiology 10/24/20 20:20 Urine Culture - Final Urine,Clean Catch A&P Assessment and plan (1) Acute pancreatitis: -Alcoholic pancreatitis -No intra or extrahepatic biliary dilatation -Calcium within normal, triglycerides -Lipase 123 PLAN: -Continue IV fluids -Pain control with Dilaudid -Zofran for nausea -Continue Zosyn -N.p.o., will consider TPN based on clinical progress -Monitor lipase, serial abdominal exams Status: Acute Qualifiers: Acute pancreatitis complication: no infection or necrosis Pancreatitis type: alcohol induced Qualified Code(s): K85.20 - Alcohol induced acute pancreatitis without necrosis or infection (2) UTI (urinary tract infection): Switch to Zosyn. Follow urinary culture. No obstruction noted on CT. Status: Acute (3) Daily consumption of alcohol: -[facility] protocol Status: Acute (4) Smoking addiction: Encourage cessation. Nicotine replacement as needed. Status: Acute Additional A&P Information Reactive duodenitis: Famotidine, Zofran as needed Attestations Medical Necessity Statement*: Patient requires hospitalization for acute moderate to severe pancreatitis Coding Level of Care Code Acute Senior Scrum Master for [facility] Diagnoses Acute pancreatitis K85.20 Acute pancreatitis complication: no infection or necrosis Pancreatitis type: alcohol induced UTI (urinary tract infection) N39.0 Daily consumption of alcohol Z78.9 Smoking addiction F17.200
[2020-10-28] VITALS (13 sets, daily range): BP systolic 154–176; BP diastolic 90–110; PULSE 78–90; RESP 16–20; TEMP 36.8–37.6; O2SAT 95–98
[2020-10-28] MEDS: HYDROmorphone 1 mg/mL INJ 1 mL IVP ×6 (01:25→22:32)
[2020-10-28] MEDS: lactated ringers 1,000 ML 150 ML IV (01:28)
[2020-10-28] MEDS: heparin 5,000 unit/mL INJ 1 mL 5000 UNIT SUBCUT ×2 (01:46→13:16)
[2020-10-28] MEDS: piperacillin-tazobactam 3.375 GM in sodium chloride 0.9% (plus) 50 ML IV ×3 (01:47→16:40)
[2020-10-28] MEDS: famotidine 20 mg/2 mL INJ IVP ×2 (01:47→13:16)
[2020-10-28] MEDS: HYDROcodone-acetaminophen 5-325 mg Tablet 1 TAB PO ×4 (03:53→23:13)
[2020-10-28 04:50] LABS: Basophils # 0.1 10^3/uL (0.0-0.1); Basophils % 0.3 %; Eosinophils # 0.1 10^3/uL (0.0-0.8); Eosinophils % 0.8 %; Hematocrit 39.3 % (42.0-52.0); Lymphocytes # 1.2 10^3/uL (0.8-4.8); Lymphocytes % 7.2 %; Mean Corpuscular HGB Conc 35.6 g/dL (30.0-36.0); Mean Corpuscular Hemoglobin 33.9 pg (28.0-34.0); Mean Corpuscular Volume 95.2 fL (80-94); Mean Platelet Volume 10.4 fL (7.4-10.4); Monocytes # 2.2 10^3/uL (0.2-0.9); Monocytes % 13.7 %; Neutrophils # 12.62 10^3/uL (1.8-7.7); Neutrophils % 77.3 %; Nucleated Red Blood Cells % 0 %; Platelet Count 151 10^3/cmm (130-400); Red Blood Count 4.13 10^6/uL (4.1-5.3); Red Cell Distribution Width 11.2 % (12.1-15.1); White Blood Count 16.3 10^3/uL (4.0-10.0)
[2020-10-28 05:10] LABS: INR 1.11 (0.8-1.2)
[2020-10-28 05:16] LABS: Procalcitonin 0.66 ng/mL (0-0.5)
[2020-10-28 05:28] LABS: Alanine Aminotransferase 19 U/L (0-41); Albumin Level 3.5 g/dL (3.5-5.2); Alkaline Phosphatase 75 IU/L (40-130); Anion Gap 16.9 (5-19); Aspartate Amino Transferase 20 U/L (0-40); Blood Urea Nitrogen 11 mg/dL (6-20); C Reactive Protein 331.7 mg/L (0.0-4.9); Calcium 8.7 mg/dL (8.5-10.5); Carbon Dioxide 22 mmol/L (22-29); Chloride 97 mmol/L (98-107); Creatine Phosphokinase 50 U/L (39-308); Glomerular Filtration Rate 129.9 mL/min (90-130); Glucose 80 mg/dL (65-115); Magnesium 1.9 mg/dL (1.7-2.3); Osmolality Calculated 272 mOsm/kg (285-295); Phosphorus 2.4 mg/dL (2.5-4.5); Potassium 3.9 mmol/L (3.5-5.1); Sodium 132 mmol/L (136-145); Total Bilirubin 0.9 mg/dL (0.15-1.2); Total Protein 6.5 g/dL (6.6-8.7)
--- NOTE | 2020-10-28 09:17 | CTR_ITS ---
PROCEDURE INFORMATION: Exam: CT Abdomen And Pelvis With Contrast Exam date and time: 10/28/2020 12:51 PM Age: 35 years old Clinical indication: Abdominal pain; Additional info: Increased abdminal pain TECHNIQUE: Imaging protocol: Computed tomography of the abdomen and pelvis with intravenous contrast. Radiation optimization: All CT scans at this facility use at least one of these dose optimization techniques: automated exposure control; mA and/or kV adjustment per patient size (includes targeted exams where dose is matched to clinical indication); or iterative reconstruction. Contrast material: OMNI 300; Contrast volume: 95 ml; Contrast route: INTRAVENOUS (IV); COMPARISON: CT abdomen pelvis w con* [id number] 10/24/2020 9:36 PM RADIATION DOSE METRICS: Total DLP (mGy-cm): 485.92 FINDINGS: Pleural space: There are bilateral pleural effusions with underlying compressive atelectasis or infiltrate. Liver: Normal. No mass. Gallbladder and bile ducts: Normal. No calcified stones. No ductal dilation. Pancreas: There is diffuse peripancreatic inflammatory stranding and fluid, consistent with acute pancreatitis. Spleen: Normal. No splenomegaly. Adrenal glands: Normal. No mass. Kidneys and ureters: Normal. No hydronephrosis. Stomach and bowel: Unremarkable. No obstruction. No mucosal thickening. Appendix: No evidence of appendicitis. Intraperitoneal space: There is a small to moderate amount of free fluid in the abdomen/pelvis. Vasculature: Unremarkable. No abdominal aortic aneurysm. Lymph nodes: Unremarkable. No enlarged lymph nodes. Urinary bladder: Unremarkable as visualized. Reproductive: Unremarkable as visualized. Bones/joints: Unremarkable. No acute fracture. Soft tissues: There is edema and emphysema in the subcutaneous soft tissues of the ventral abdomen consistent with recent injection sites. CT/CT abdomen pelvis w con* [id number] IMPRESSION: 1. There is diffuse peripancreatic inflammatory stranding and fluid, consistent with acute pancreatitis. 2. There are bilateral pleural effusions with underlying compressive atelectasis or infiltrate. Radiation Dose CTDIVOL = (mGy): DLP = 485.92 (mGy-cm)
[2020-10-28] MEDS: folic acid 1 mg Tablet PO (09:19)
[2020-10-28] MEDS: thiamine 100 mg Tablet PO (09:19)
--- NOTE | 2020-10-28 11:19 | PC.NURSE ---
Nurse notified of high bloop pressure: 168/110 Patient says he is in pain and already has had his main medicine.
[2020-10-28] MEDS: sodium chloride 0.9% 1,000 ML 125 ML IV ×2 (11:51→18:35)
[2020-10-28] MEDS: iohexol 300 mg/mL 100 mL Btl IV (13:37)
--- NOTE | 2020-10-28 15:48 | PM.PN ---
Subjective Subjective: Interval history: This morning patient was examined, his abdominal pain is a bit better, abdomen still a bit distended more than usual, had low-grade temperatures overnight, no nausea, no vomiting, he is a bit frustrated in terms of his clinical progress Vitals/I&O/Wt Last Vital Signs Temp 98.8 F 10/28/20 11:19 Pulse 82 10/28/20 11:19 Resp 16 10/28/20 13:15 BP 160/90 10/28/20 11:42 Pulse Ox 95 10/28/20 11:19 10/28/20 10/28/20 10/28/20 06:59 14:59 22:59 Intake Total 120 / 2220 100 / 100 Output Total 775 / 1725 Balance -655 / 495 100 / 100 Weight last 48 hrs Weight 80.83 kg Weight 80.683 kg Physical Exam Const: COMMON NORMALS: no acute distress and patient oriented x3 HENMT: COMMON NORMALS: normocephalic HEAD & SCALP: normocephalic Neck/C-Spine: COMMON NORMALS: no JVD Resp: COMMON NORMALS: normal respiratory effort, No retractions, No use of accessory muscles and clear to auscultation bilaterally AUSCULTATION: clear to auscultation bilaterally Cardio: COMMON NORMALS: no JVD, regular rate, regular rhythm, S1 normal heart sound present and S2 normal heart sound present RATE: regular rate RHYTHM: regular rhythm HEART SOUNDS: S1 normal heart sound present and S2 normal heart sound present GI: COMMON NORMALS: Normal to inspection, nondistended, normoactive bowel sounds present, Soft to palpation, No hepatosplenomegaly present, no masses and no bruits PALPATION: Yes Soft to palpation, Yes Tenderness to palpation present (GI) Details: LLQ, RLQ, LUQ and RUQ and Yes No hepatosplenomegaly present Extremity: COMMON NORMALS: capillary refill normal, no clubbing, cyanosis or edema, no calf tenderness and no pedal edema Neuro: COMMON NORMALS: patient oriented x3 Psych: COMMON NORMALS: mental status grossly normal Data : 10/28/20 04:36 10/28/20 04:36 A&P Assessment and plan (1) Acute pancreatitis: -Alcoholic pancreatitis -No intra or extrahepatic biliary dilatation -Calcium within normal, triglycerides -Lipase 123 PLAN: -Continue IV fluids -Pain control with Dilaudid -Zofran for nausea -Continue Zosyn -N.p.o., will consider TPN based on clinical progress -Monitor lipase, serial abdominal exams -We will repeat CT scan of the abdomen today Status: Acute Qualifiers: Acute pancreatitis complication: no infection or necrosis Pancreatitis type: alcohol induced Qualified Code(s): K85.20 - Alcohol induced acute pancreatitis without necrosis or infection (2) UTI (urinary tract infection): Switch to Zosyn. Follow urinary culture. No obstruction noted on CT. Status: Acute (3) Daily consumption of alcohol: -[facility] protocol Status: Acute (4) Smoking addiction: Encourage cessation. Nicotine replacement as needed. Status: Acute Additional A&P Information Reactive duodenitis: Famotidine, Zofran as needed Attestations Medical Necessity Statement*: Patient Requires hospitalization for acute pancreatitis Coding Level of Care Code Acute Modeling Director for [facility] Diagnoses Acute pancreatitis K85.20 Acute pancreatitis complication: no infection or necrosis Pancreatitis type: alcohol induced UTI (urinary tract infection) N39.0 Daily consumption of alcohol Z78.9 Smoking addiction F17.200
--- NOTE | 2020-10-28 17:13 | PC.NURSE ---
Told nurse about high blood pressure of 172/106
--- NOTE | 2020-10-28 19:10 | PC.NURSE ---
Report to Светлана MENDEZ
[2020-10-29] VITALS (12 sets, daily range): BP systolic 155–172; BP diastolic 72–119; PULSE 75–111; RESP 16–20; TEMP 36.7–37.7; O2SAT 96–97
[2020-10-29] MEDS: piperacillin-tazobactam 3.375 GM in sodium chloride 0.9% (plus) 50 ML IV ×3 (01:46→17:05)
[2020-10-29] MEDS: heparin 5,000 unit/mL INJ 1 mL 5000 UNIT SUBCUT ×2 (01:47→13:46)
[2020-10-29] MEDS: famotidine 20 mg/2 mL INJ IVP ×2 (01:47→13:46)
[2020-10-29] MEDS: HYDROmorphone 1 mg/mL INJ 1 mL IVP ×4 (02:37→21:59)
[2020-10-29] MEDS: sodium chloride 0.9% 1,000 ML 125 ML IV ×2 (04:24→13:56)
[2020-10-29 04:38] LABS: Basophils # 0.1 10^3/uL (0.0-0.1); Basophils % 0.5 %; Eosinophils # 0.1 10^3/uL (0.0-0.8); Eosinophils % 0.8 %; Hematocrit 39.9 % (42.0-52.0); Hemoglobin 14.2 g/dL (11.7-16.6); Lymphocytes # 1.3 10^3/uL (0.8-4.8); Lymphocytes % 8.6 %; Mean Corpuscular HGB Conc 35.6 g/dL (30.0-36.0); Mean Corpuscular Hemoglobin 34.1 pg (28.0-34.0); Mean Corpuscular Volume 95.7 fL (80-94); Mean Platelet Volume 10.5 fL (7.4-10.4); Monocytes # 2.4 10^3/uL (0.2-0.9); Monocytes % 15.9 %; Neutrophils # 11.18 10^3/uL (1.8-7.7); Neutrophils % 73.7 %; Nucleated Red Blood Cells % 0 %; Platelet Count 192 10^3/cmm (130-400); Red Blood Count 4.17 10^6/uL (4.1-5.3); Red Cell Distribution Width 11.4 % (12.1-15.1); White Blood Count 15.2 10^3/uL (4.0-10.0)
[2020-10-29 05:04] LABS: Alanine Aminotransferase 22 U/L (0-41); Albumin Level 3.3 g/dL (3.5-5.2); Alkaline Phosphatase 98 IU/L (40-130); Aspartate Amino Transferase 25 U/L (0-40); Blood Urea Nitrogen 9 mg/dL (6-20); Calcium 8.7 mg/dL (8.5-10.5); Carbon Dioxide 21 mmol/L (22-29); Chloride 99 mmol/L (98-107); Globulin 3.2 g/dL (1.3-4.6); Glomerular Filtration Rate 129.9 mL/min (90-130); Glucose 70 mg/dL (65-115); Lipase 49 U/L (13-60); Osmolality Calculated 275 mOsm/kg (285-295); Phosphorus 2.8 mg/dL (2.5-4.5); Sodium 134 mmol/L (136-145); Total Bilirubin 0.7 mg/dL (0.15-1.2); Total Protein 6.5 g/dL (6.6-8.7)
[2020-10-29] MEDS: HYDROcodone-acetaminophen 5-325 mg Tablet 1 TAB PO (05:20)
[2020-10-29] MEDS: HYDROcodone-acetaminophen 7.5-325 mg Tablet 1 TAB PO ×4 (09:16→23:57)
[2020-10-29] MEDS: thiamine 100 mg Tablet PO (09:17)
[2020-10-29] MEDS: folic acid 1 mg Tablet PO (09:17)
[2020-10-29] MEDS: multivitamin therapeutic Tablet 1 TAB PO (09:17)
--- NOTE | 2020-10-29 10:03 | PC.NURSE ---
Informed nurse of high blood pressure of 158/107.
[2020-10-29] MEDS: nicotine 21 mg Patch 1 PATCH TRANSDERMA (11:17)
--- NOTE | 2020-10-29 11:24 | PC.NURSE ---
Notified nurse of high blood pressure: 172/119
--- NOTE | 2020-10-29 11:51 | PC.CHAP ---
Pastoral Care Encounter/Spiritual Assessment Type of Contact [] Declined bread wrapper operator visit [] Patient/Family/Request visit [] Outpatient visit [] Follow-up visit [] Physician referral [] Code/Alert [X] Routine visit [] Staff referral [] Actively dying [] Patient sleeping [] Family support [] [] Out of room [] Palliative care [] [] Receiving care in room [] Pre-surgical visit [] Trauma [] Long length of stay [] ICU visit [] Other: Relational/Emotional Strength [X] Patient feels connected with others/family/visitors/staff [] Distress [] Loneliness/isolation [] Abandonment Spirituality of Patient [] Person of Nneka [] Attends Scientologist of their Nneka [] Believes in Prayer [] Reads Bible or Buddhism materials [X] There are Spiritual issues to be addressed Adhesive Bandage Machine Operator Interventions [X] Prayer [X] Active listening [X] Non-anxious presence [X] Spiritual/emotional support [] Crisis/trauma care [] Spiritual counseling [] Bereavement support [] Provided bereavement packet [] Provided Bible/devotional materials [] Provided toy/stuffed animal, coloring book to patient or family member [] Provided Communion [] Anointing/[place] [] Salvation [X] Completed spiritual assessment [] Other: Impact on Illness or Injury [] Angry [] Fearful [] Anxious [] Often cries [] Exhaustion [] Unable to work [] Unable to attend temple [] Unable to walk/stand [] Unable to read [] Unable to drive [] Unable to eat/drink [] Unable to sleep [] Unable to be with family [] Patient intubated [] Other: Summary Pt has little if any spiritual knowledge or insight. Did express concerns regarding employment and those in his care. Chaplains discussed this life changing event for him. Encouraged him to be aware of any feelings or emotions which may surface in days ahead and to seek help if needed. Offered prayer and he did accept. Time spent with patient 20 min
--- NOTE | 2020-10-29 11:56 | PM.PN ---
Subjective Subjective: Interval history: This morning patient was examined, he still complains of generalized abdominal pain, now more to the flanks, no fevers, no chills, no nausea, no vomiting, his lipase has returned back to normal, his CT scan does show diffuse peripancreatic inflammation, he would like to try to eat something, and would like to switch around his pain medications Vitals/I&O/Wt Last Vital Signs Temp 98.1 F 10/29/20 11:21 Pulse 95 10/29/20 11:21 Resp 17 10/29/20 11:21 BP 172/119 10/29/20 11:21 Pulse Ox 96 10/29/20 11:21 10/28/20 10/29/20 10/29/20 22:59 06:59 14:59 Intake Total 1111.667 / 1341.868 4234 / 2321.667 Output Total 300 / 1300 1700 / 3000 Balance 811.667 / -88.333 -590 / -678.333 Weight last 48 hrs Weight 78.834 kg Weight 80.83 kg Physical Exam Const: COMMON NORMALS: no acute distress and patient oriented x3 HENMT: COMMON NORMALS: normocephalic HEAD & SCALP: normocephalic Neck/C-Spine: COMMON NORMALS: no JVD Resp: COMMON NORMALS: normal respiratory effort, No retractions, No use of accessory muscles and clear to auscultation bilaterally AUSCULTATION: clear to auscultation bilaterally Cardio: COMMON NORMALS: no JVD, regular rate, regular rhythm, S1 normal heart sound present and S2 normal heart sound present RATE: regular rate RHYTHM: regular rhythm HEART SOUNDS: S1 normal heart sound present and S2 normal heart sound present GI: COMMON NORMALS: Normal to inspection, nondistended, normoactive bowel sounds present, non-tender, no masses and no bruits AUSCULTATION: Yes normoactive bowel sounds PALPATION: Yes Tenderness to palpation present (GI) (Diffuse generalized tenderness) Extremity: COMMON NORMALS: capillary refill normal, no clubbing, cyanosis or edema, no calf tenderness and no pedal edema Neuro: COMMON NORMALS: patient oriented x3 Psych: COMMON NORMALS: mental status grossly normal Data : 10/29/20 03:48 10/29/20 03:48 A&P Assessment and plan (1) Acute pancreatitis: -Alcoholic pancreatitis -No intra or extrahepatic biliary dilatation -Calcium within normal, triglycerides -Lipase within normal limits -CT scan shows diffuse peripancreatic inflammation ase within normal limits -No pancreatic necrosis, no abscess, no pseudocyst PLAN: -Decrease IV fluids to 50 cc an hour -Clearliquiddiet -Switch around pain control to [place] as main pain medication, Dilaudid as needed -Zofran for nausea -Continue Zosyn -On a clear liquid diet -Monitor lipase, serial abdominal exams Status: Acute Qualifiers: Acute pancreatitis complication: no infection or necrosis Pancreatitis type: alcohol induced Qualified Code(s): K85.20 - Alcohol induced acute pancreatitis without necrosis or infection (2) UTI (urinary tract infection): Switch to Zosyn. Follow urinary culture. No obstruction noted on CT. Status: Acute (3) Daily consumption of alcohol: -[facility] protocol Status: Acute (4) Smoking addiction: Encourage cessation. Nicotine replacement as needed. Status: Acute Additional A&P Information Reactive duodenitis: Famotidine, Zofran as needed Attestations Medical Necessity Statement*: Patient requires hospitalization for acute pancreatitis Coding Level of Care Code Acute Finished Yarn Examiner for [facility] Diagnoses Acute pancreatitis K85.20 Acute pancreatitis complication: no infection or necrosis Pancreatitis type: alcohol induced UTI (urinary tract infection) N39.0 Daily consumption of alcohol Z78.9 Smoking addiction F17.200
[2020-10-30] VITALS (7 sets, daily range): BP systolic 157–180; BP diastolic 93–106; PULSE 76–99; RESP 18–20; TEMP 36.3–37.4; O2SAT 97–98
[2020-10-30] MEDS: heparin 5,000 unit/mL INJ 1 mL 5000 UNIT SUBCUT ×2 (00:13→12:56)
[2020-10-30] MEDS: piperacillin-tazobactam 3.375 GM in sodium chloride 0.9% (plus) 50 ML IV ×3 (00:13→17:23)
[2020-10-30] MEDS: famotidine 20 mg/2 mL INJ IVP ×2 (00:13→12:56)
[2020-10-30] MEDS: HYDROcodone-acetaminophen 7.5-325 mg Tablet 1 TAB PO ×4 (04:47→17:23)
[2020-10-30 05:02] LABS: Basophils # 0.1 10^3/uL (0.0-0.1); Basophils % 0.5 %; Eosinophils # 0.1 10^3/uL (0.0-0.8); Eosinophils % 0.9 %; Hemoglobin 14.5 g/dL (11.7-16.6); Lymphocytes # 1.4 10^3/uL (0.8-4.8); Mean Corpuscular HGB Conc 35.4 g/dL (30.0-36.0); Mean Corpuscular Hemoglobin 33.6 pg (28.0-34.0); Mean Corpuscular Volume 94.9 fL (80-94); Mean Platelet Volume 10.2 fL (7.4-10.4); Monocytes # 2.7 10^3/uL (0.2-0.9); Neutrophils # 11.52 10^3/uL (1.8-7.7); Neutrophils % 72.2 %; Nucleated Red Blood Cells % 0 %; Platelet Count 211 10^3/cmm (130-400); Red Blood Count 4.32 10^6/uL (4.1-5.3); Red Cell Distribution Width 11.5 % (12.1-15.1)
[2020-10-30 05:37] LABS: Alanine Aminotransferase 29 U/L (0-41); Albumin Level 3.3 g/dL (3.5-5.2); Alkaline Phosphatase 112 IU/L (40-130); Anion Gap 16.5 (5-19); Aspartate Amino Transferase 36 U/L (0-40); Blood Urea Nitrogen 7 mg/dL (6-20); Calcium 8.7 mg/dL (8.5-10.5); Carbon Dioxide 22 mmol/L (22-29); Chloride 98 mmol/L (98-107); Globulin 3.1 g/dL (1.3-4.6); Glomerular Filtration Rate 129.9 mL/min (90-130); Glucose 96 mg/dL (65-115); Lipase 70 U/L (13-60); Osmolality Calculated 274 mOsm/kg (285-295); Potassium 3.5 mmol/L (3.5-5.1); Sodium 133 mmol/L (136-145); Total Bilirubin 0.6 mg/dL (0.15-1.2); Total Protein 6.4 g/dL (6.6-8.7)
[2020-10-30] MEDS: multivitamin therapeutic Tablet 1 TAB PO (09:03)
[2020-10-30] MEDS: folic acid 1 mg Tablet PO (09:03)
[2020-10-30] MEDS: amlodipine 10 mg Tablet PO (09:03)
[2020-10-30] MEDS: thiamine 100 mg Tablet PO (09:03)
[2020-10-30] MEDS: sodium chloride 0.9% 1,000 ML 125 ML IV (10:17)
[2020-10-30] MEDS: HYDROmorphone 1 mg/mL INJ 1 mL IVP ×2 (10:22→21:28)
--- NOTE | 2020-10-30 12:11 | PM.PN ---
Subjective Subjective: Interval history: This morning patient was examined, he is doing better, abdomen less distended, his pain is well controlled, he feels as if he can try something more substantial, but does not want to progress his diet too quickly, no fevers, no nausea, no vomiting, tolerating clear liquid diet well Vitals/I&O/Wt Last Vital Signs Temp 98.0 F 10/30/20 11:05 Pulse 93 10/30/20 11:05 Resp 18 10/30/20 11:05 BP 157/93 10/30/20 11:05 Pulse Ox 97 10/30/20 11:05 10/29/20 10/30/20 10/30/20 22:59 06:59 14:59 Intake Total 1500 / 2550 50 / 2600 240 / 240 Output Total 1200 / 1200 700 / 1900 Balance 300 / 1350 -650 / 700 240 / 240 Weight last 48 hrs Weight 51.8 kg Weight 78.834 kg Physical Exam Const: COMMON NORMALS: no acute distress and patient oriented x3 HENMT: COMMON NORMALS: normocephalic HEAD & SCALP: normocephalic Neck/C-Spine: COMMON NORMALS: no JVD Resp: COMMON NORMALS: normal respiratory effort, No retractions, No use of accessory muscles and clear to auscultation bilaterally AUSCULTATION: clear to auscultation bilaterally Cardio: COMMON NORMALS: no JVD, regular rate, regular rhythm, S1 normal heart sound present and S2 normal heart sound present RATE: regular rate RHYTHM: regular rhythm HEART SOUNDS: S1 normal heart sound present and S2 normal heart sound present GI: COMMON NORMALS: Normal to inspection, nondistended, normoactive bowel sounds present, Soft to palpation, non-tender, No hepatosplenomegaly present, no masses and no bruits INSPECTION: Yes abdominal distension PALPATION: Yes Soft to palpation, No Tenderness to palpation present (GI) and Yes No hepatosplenomegaly present Extremity: COMMON NORMALS: capillary refill normal, no clubbing, cyanosis or edema, no calf tenderness and no pedal edema Neuro: COMMON NORMALS: patient oriented x3 Psych: COMMON NORMALS: mental status grossly normal Data : 10/30/20 04:28 10/30/20 04:28 A&P Assessment and plan (1) Acute pancreatitis: -Alcoholic pancreatitis -No intra or extrahepatic biliary dilatation -Calcium within normal, triglycerides -Lipase within normal limits -CT scan shows diffuse peripancreatic inflammation ase within normal limits -No pancreatic necrosis, no abscess, no pseudocyst PLAN: -Stop fluids -Full liquid diet -Switch around pain control to [place] as main pain medication, Dilaudid as needed -Zofran for nausea -Continue Zosyn -Monitor lipase, serial abdominal exams -Likely discharge in the next 24 hours Status: Acute Qualifiers: Acute pancreatitis complication: no infection or necrosis Pancreatitis type: alcohol induced Qualified Code(s): K85.20 - Alcohol induced acute pancreatitis without necrosis or infection (2) UTI (urinary tract infection): Switch to Zosyn. Follow urinary culture. No obstruction noted on CT. Status: Acute (3) Daily consumption of alcohol: -[facility] protocol Status: Acute (4) Smoking addiction: Encourage cessation. Nicotine replacement as needed. Status: Acute Additional A&P Information Reactive duodenitis: Famotidine, Zofran as needed Attestations Medical Necessity Statement*: Patient requires hospitalization for acute pancreatitis Coding Level of Care Code Acute Drill Press Operator For Metal for [facility] Diagnoses Acute pancreatitis K85.20 Acute pancreatitis complication: no infection or necrosis Pancreatitis type: alcohol induced UTI (urinary tract infection) N39.0 Daily consumption of alcohol Z78.9 Smoking addiction F17.200
[2020-10-31] VITALS: BP 150/90; PULSE 102; RESP 20; TEMP 37.6; O2SAT 97
[2020-10-31] MEDS: famotidine 20 mg/2 mL INJ IVP ×2 (00:19→11:52)
[2020-10-31] MEDS: HYDROcodone-acetaminophen 7.5-325 mg Tablet 1 TAB PO ×4 (00:20→14:35)
[2020-10-31] MEDS: heparin 5,000 unit/mL INJ 1 mL 5000 UNIT SUBCUT ×2 (00:20→11:52)
[2020-10-31] MEDS: piperacillin-tazobactam 3.375 GM in sodium chloride 0.9% (plus) 50 ML IV ×2 (00:20→08:20)
[2020-10-31 03:31] VITALS: BP 154/96; PULSE 96; RESP 20; TEMP 37.3; O2SAT 96
[2020-10-31 05:57] LABS: Basophils # 0.1 10^3/uL (0.0-0.1); Basophils % 0.7 %; Eosinophils # 0.2 10^3/uL (0.0-0.8); Eosinophils % 1.2 %; Hematocrit 43.2 % (42.0-52.0); Hemoglobin 14.9 g/dL (11.7-16.6); Lymphocytes # 1.7 10^3/uL (0.8-4.8); Lymphocytes % 9.9 %; Mean Corpuscular HGB Conc 34.5 g/dL (30.0-36.0); Mean Corpuscular Hemoglobin 33.1 pg (28.0-34.0); Mean Platelet Volume 9.8 fL (7.4-10.4); Monocytes # 2.5 10^3/uL (0.2-0.9); Monocytes % 14.9 %; Neutrophils # 12.18 10^3/uL (1.8-7.7); Neutrophils % 72.3 %; Nucleated Red Blood Cells % 0 %; Platelet Count 277 10^3/cmm (130-400); Red Cell Distribution Width 11.7 % (12.1-15.1); White Blood Count 16.8 10^3/uL (4.0-10.0)
[2020-10-31 06:30] LABS: Lipase 96 U/L (13-60)
[2020-10-31 06:34] LABS: Alanine Aminotransferase 39 U/L (0-41); Albumin Level 3.4 g/dL (3.5-5.2); Alkaline Phosphatase 135 IU/L (40-130); Anion Gap 17.7 (5-19); Aspartate Amino Transferase 34 U/L (0-40); Blood Urea Nitrogen 7 mg/dL (6-20); Calcium 8.9 mg/dL (8.5-10.5); Carbon Dioxide 25 mmol/L (22-29); Chloride 99 mmol/L (98-107); Globulin 2.8 g/dL (1.3-4.6); Glomerular Filtration Rate 129.9 mL/min (90-130); Glucose 96 mg/dL (65-115); Magnesium 2.1 mg/dL (1.7-2.3); Osmolality Calculated 284 mOsm/kg (285-295); Phosphorus 3.8 mg/dL (2.5-4.5); Potassium 3.7 mmol/L (3.5-5.1); Sodium 138 mmol/L (136-145); Total Bilirubin 0.4 mg/dL (0.15-1.2); Total Protein 6.2 g/dL (6.6-8.7)
[2020-10-31 07:10] VITALS: BP 130/63; PULSE 54; RESP 18; TEMP 37.9; O2SAT 97
[2020-10-31] MEDS: folic acid 1 mg Tablet PO (08:20)
[2020-10-31] MEDS: amlodipine 10 mg Tablet PO (08:20)
[2020-10-31] MEDS: thiamine 100 mg Tablet PO (08:20)
[2020-10-31] MEDS: multivitamin therapeutic Tablet 1 TAB PO (08:20)
--- NOTE | 2020-10-31 10:49 | P.DS_ITS ---
Discharge Providers Date of Admission: 10/24/20 22:41 Date of Discharge: October 31, 2020 Attending Provider at Admission: Naeem Hewitt Attending Provider at Discharge: Jarod Fuller MD Diagnoses at Discharge Discharge Diagnosis (1) Acute pancreatitis: Status: Acute Qualifiers: Acute pancreatitis complication: no infection or necrosis Pancreatitis type: alcohol induced Qualified Code(s): K85.20 - Alcohol induced acute pancreatitis without necrosis or infection (2) UTI (urinary tract infection): Status: Acute (3) Daily consumption of alcohol: Status: Acute (4) Smoking addiction: Status: Acute Reason for Visit Reason for Visit: Abd Pain Hospital Course Hospital Course This is a 35-year-old male with a past medical history of chronic alcoholism, presents to [facility] for abdominal pain Patient was admitted to [facility] for abdominal pain secondary to alcoholic acute pancreatitis, was admitted to general medical floors, received IV fluids, n.p.o.,, pain control, broad-spectrum antibiotic therapy, lipase on admission was [id number], CT scan of the abdomen showed grade 2 out of 5 acute pancreatitis, with moderate peripancreatic inflammation, moderate reactive duodenitis, no cholelithiasis, no intra or extrahepatic biliary duct dilatation. Patient had a slow clinical progress, had 8 days as inpatient, due to low-grade temperatures and continued pain he had repeat CT scan to evaluate for pancreatic necrosis or abscess or cyst, repeat CT scan with IV contrast showed diffuse peripancreatic inflammatory stranding and fluid,consistent with acute pancreatitis.. No abscess, no pseudocyst, no necrosis seen. Patient's clinical condition did slowly improve, abdominal pain improved, transitioned from clear liquid, to full liquid, to a GI soft diet, tolerated it well. On discharge he did have a temperature of 100.3, but he was feeling well, abdominal pain has significantly improved, and he was ready to go home. I have discharged him on pain control with hydrocodone, Cipro and Flagyl for 7 remaining days, advised to abstain from alcohol, and to drink plenty of electrolyte balance fluids, and a GI soft diet. Patient was advised that if he were to have worsening abdominal pain, abdominal distention, and recurrent fevers come back to the emergency room as this could get evidence of pancreatic abscess or a cyst or necrosis. Discharge Data Data Completed and Pending: Completed Studies During Hospitalization Category Date Time Status CT abdomen pelvis w con* [id number] Rout ine Cat Scan 10/28/20 09:[address] abdomen pelvis w con* [id number] Urge nt Cat Scan 10/24/20 20:51 Completed XR KUB [id number] Urge nt Exams 10/24/20 16:43 [place] d [id number] Urgent Ultrasound 10/25/20 01:09 Completed Labs from last 24 hours 10/31/20 10/31/20 10/31/20 05:26 05:26 05:26 WBC 16.8 H RBC 4.50 Hgb 14.9 Hct 43.2 MCV 96.0 H MCH 33.1 MCHC 34.5 RDW 11.7 L Plt Count 277 MPV 9.8 Neut % (Auto) 72.3 Lymph % (Auto) 9.9 Grant % (Auto) 14.9 Eos % (Auto) 1.2 Baso % (Auto) 0.7 Neut # (Auto) 12.18 H Lymph # (Auto) 1.7 Grant # (Auto) 2.5 H Eos # (Auto) 0.2 Baso # (Auto) 0.1 Nucleated RBC % (a uto) 0 Nucleated RBCs # 0.0 Sodium 138 Potassium 3.7 Chloride 99 Carbon Dioxide 25 Anion Gap 17.7 BUN 7 Creatinine 0.7 GFR Calculation 129.9 Glucose 96 Calculated Osmolal ity 284 L Calcium 8.9 Phosphorus 3.8 Magnesium 2.1 Total Bilirubin 0.4 AST 34 ALT 39 Alkaline Phosphata se 135 H Total Protein 6.2 L Albumin 3.4 L Globulin 2.8 Lipase 96 H Vitals: Last Vital Signs Temp 100.3 F H 10/31/20 07:10 Pulse 54 L 10/31/20 07:10 Resp 18 10/31/20 07:10 BP 130/63 10/31/20 07:10 Pulse Ox 97 10/31/20 07:10 Discharge Plan Discharge Patient Disposition: Home Condition: Stable Prescriptions: New hydrocodone-acetaminophen 7.5-325 mg Tablet 1 tab PO Q4H PRN (Reason: Moderate Pain) 7 Days Qty: 42 RF: 0 thiamine mononitrate (vit B1) [Vitamin B-1 (mononitrate)] 100 mg Tablet 100 mg PO DAILY 30 Days Qty: 30 RF: 0 amlodipine 10 mg Tablet 10 mg PO DAILY 30 Days Qty: 30 RF: 0 ciprofloxacin HCl [Cipro] 500 mg tablet 500 mg PO BID 7 Days Qty: 14 RF: 0 metronidazole [Flagyl] 500 mg tablet 500 mg PO Q8H 7 Days Qty: 21 RF: 0 folic acid 1 mg Tablet 1 mg PO DAILY 30 Days Qty: 30 RF: 0 multivitamin with folic acid [Thera] 400 mcg Tablet 1 tab PO DAILY 30 Days Qty: 30 RF: 0 No Action No Known Home Medications RF: 0 Discharge Orders: Discharge Order (Routine); Ordered 10/31/20 Ordered By: Jarod Fuller Referrals: Magdalene Bass DO [Physician] - 11/01/20 3:00 pm Discharge Diet: GI Soft Discharge Activity: Resume usual activity Patient Instructions: Pancreatitis (DC), Abuse of Alcohol (GEN) Activity Restrictions/Additional Instructions: -Please use pain control sparingly -Antibiotics for the next 7 days -Please abstain from alcohol consumption -GI soft diet -If you have worsening fevers, worsening abdominal pain, nausea, vomiting please come to the emergency room -Drink plenty of electrolyte balance fluids Discharge Attestations Time Spent in Discharge Care*: greater than 30 min Quality Metrics Clinical Quality Measures During this hospital stay, did patient experience: None Coding Level 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
[2020-10-31 11:12] VITALS: BP 148/87; PULSE 77; RESP 18; TEMP 36.7; O2SAT 98
[2020-10-31 11:15] VITALS: BP 148/87; PULSE 77; RESP 18; TEMP 36.7; O2SAT 98
[2020-10-31 15:02] VITALS: PULSE 74; RESP 18; TEMP 36.7; O2SAT 94
--- NOTE | 2020-10-31 16:15 | PC.NURSE ---
DISCHARGE NOTE DISCHARGE INSTRUCTIONS GIVEN PER THIS NURSE - PT VERBALIZES UNDERSTANDING
== END 2020-10-31 17:00 | disposition home or self-care (01) | DRG 439 ==
LOC: ER 23:21 → ER IP 10-25 01:06 → MEDSURG 10-25 06:23
PROVIDERS: Nurse Practitioner Family; Admitting Provider Internal Medicine; Emergency Provider Family Medicine; Visit Provider Family Medicine
DX: K85.20 Alcohol induced acute pancreatitis without necrosis or infection (principal); N39.0 Urinary tract infection, site not specified; F10.20 Alcohol dependence, uncomplicated; F17.210 Nicotine dependence, cigarettes, uncomplicated; K70.0 Alcoholic fatty liver
CPT/HCPCS: 12345; 36415; 74018; 74177; 76705; 80053; 81001; 82550; 83690; 83735; 84100; 84145; 84478; 85025; 85610; 86140; 87086; 96372; 99283; J0696; J1170; J1644; J1885; J2270; J2405; J2543; J3411; J3490; J7030; Q9967

== ENCOUNTER 2025-05-09 01:52 | Emergency (ER) | payer SELFPAY ==
[2025-05-09] VITALS (8 sets, daily range): BP systolic 102–162; BP diastolic 69–102; PULSE 75–94; RESP 14–20; TEMP 36.5; O2SAT 94–97; BMI 24.2
--- NOTE | 2025-05-09 02:09 | CTR_ITS ---
PROCEDURE INFORMATION: Exam: CT Abdomen And Pelvis With Contrast Exam date and time: 05/09/2025 2:54 AM Age: 39 years old Clinical indication: Nausea and vomiting; Abdominal pain; Localized; Right; RT sided abd pain with n/v/d. ; Additional info: Right flank/groin pain TECHNIQUE: Imaging protocol: Computed tomography of the abdomen and pelvis with contrast. Radiation optimization: All CT scans at this facility use at least one of these dose optimization techniques: automated exposure control; mA and/or kV adjustment per patient size (includes targeted exams where dose is matched to clinical indication); or iterative reconstruction. Contrast material: OMNI 350; Contrast volume: 100 ml; Contrast route: INTRAVENOUS (IV); COMPARISON: CT abdomen pelvis w con* [id number] 10/28/2020 1:28 PM RADIATION DOSE METRICS: Total DLP (mGy-cm): 1365.85 FINDINGS: Liver: Diffuse hepatic hypoattenuation. Gallbladder and biliary ducts: Normal. No calcified stones. No ductal dilation. Pancreas: Few dystrophic pancreatic calcifications consistent with chronic pancreatitis. No acute changes. Spleen: Normal. No splenomegaly. Adrenal glands: Normal. No mass. Kidneys and ureters: 3 x 4 mm right-sided proximal ureteral stone. Mild hydronephrosis. Punctate nonobstructing bilateral renal calculi. Stomach and bowel: Unremarkable. No obstruction. No mucosal thickening. Appendix: No evidence of appendicitis. Intraperitoneal space: Unremarkable. No free air. No significant fluid collection. Vasculature: Unremarkable. No abdominal aortic aneurysm. Lymph nodes: Unremarkable. No enlarged lymph nodes. Urinary bladder: Unremarkable as visualized. Reproductive: Unremarkable as visualized. Bones/joints: Unremarkable. No acute fracture. Soft tissues: Unremarkable. CT/CT abdomen pelvis w con* [id number] IMPRESSION: 1. 3 x 4 mm right-sided proximal ureteral stone. Mild hydronephrosis. 2. Punctate nonobstructing bilateral renal calculi. 3. Hepatic steatosis.
[2025-05-09] MEDS: morphine 4 mg/mL SDV 1 mL IVP ×2 (02:22→03:20)
[2025-05-09] MEDS: ondansetron 2 mg/ML SDV 2 mL 4 MG IVP (02:22)
[2025-05-09 02:23] LABS: Hematocrit 43.5 % (37-53); Hemoglobin 15.00 g/dL (11.27-16.99); Mean Corpuscular HGB Conc 34.5 g/dL (30-55); Mean Corpuscular Hemoglobin 31.8 pg (27-33); Mean Corpuscular Volume 92.2 fl (82-101); Nucleated Red Blood Cells % 0 %; Platelet Count 199 10^3/cmm (157-399); Red Blood Count 4.72 10^6/uL (3.85-5.65); White Blood Count 11.29 10^3/uL (3.29-11.43)
[2025-05-09 02:41] LABS: Alanine Aminotransferase 60 U/L (0-41); Albumin Level 4.4 g/dL (3.5-5.2); Alkaline Phosphatase 74 U/L (40-130); Anion Gap 23.3 (5-19); Aspartate Amino Transferase 31 U/L (0-40); Blood Urea Nitrogen 16 mg/dL (6-20); Calcium 8.5 mg/dL (8.5-10.5); Carbon Dioxide 22 mmol/L (22-29); Chloride 99 mmol/L (98-107); Creatinine Clr Calc Pharmacy 85.1774; Globulin 2.9 g/dL (1.3-4.6); Glucose 160 mg/dL (65-115); Lipase 6 U/L (13-60); Osmolality Calculated 295 mOsm/kg (285-295); Potassium 4.3 mmol/L (3.5-5.1); Sodium 140 mmol/L (136-145); Total Protein 7.3 g/dL (6.6-8.7)
[2025-05-09] MEDS: iohexol 350 mg/mL 500 mL Btl (per mL) IV (02:56)
--- NOTE | 2025-05-09 05:58 | W.ED.ABDPA2 ---
HPI - Abdominal Pain General: Chief Complaint: Abdominal Pain Stated Complaint: RIGHT ABDOMEN PAIN Time Seen by Provider: 05/09/25 02:08 History of Present Illness: 39-year-old male with past pancreatitis (alcohol-related) and prior kidney stone presents to ED for acute right flank pain that began around 22:00, ?4 h prior to arrival. Pain radiates toward the right lower quadrant and posterior flank but differs from his previous nephrolithiasis episodes. EMS administered fentanyl with only transient relief; current pain 10/10, intermittent ?kicks.? Associated symptoms include chills, subjective fever, and vomiting. Denies abdominal trauma. No prior abdominal surgery. No known drug or food allergies reported during interview. Related Data Previous Rx's ?Medication ?Instructions ?Recorded sulfamethoxazole 800 1 tab PO BID 7 days #14 tabs 05/31/24 mg-trimethoprim 160 mg tablet (Bactrim DS) ketorolac 10 mg tablet 10 mg PO Q8H PRN pain 4 days #30 05/09/25 tabs ondansetron 4 mg disintegrating 4 mg PO Q8H PRN nausea and 05/09/25 tablet vomiting #20 tabs oxycodone-acetaminophen 5 mg-325 1 tab PO Q8H PRN pain #20 tabs 05/09/25 mg tablet (Percocet) tamsulosin 0.4 mg capsule (Flomax) 0.4 mg PO DAILY #10 caps 05/09/25 Allergies Allergy/AdvReac Type Severity Reaction Status Date / Time No Known Allergies Allergy Verified 05/31/24 12:42 [facility] PFSH: Medical History Essential hypertension Daily consumption of alcohol Surgical History No pertinent past surgical history Family History Other Diabetes Social History Smoking and tobacco/nicotine status: unknown if used tobacco/nicotine Alcohol intake: former Former alcohol use details: quit 10 days - was drinking about 12 beer daily and whiskey shooters Substance/Drug Use: former Date of last use: thc - quit a few months ago Lives independently: Yes Current occupational status: employed Physical Exam Const: COMMON NORMALS: no acute distress, patient oriented x3 and alert HENMT: COMMON NORMALS: normocephalic and atraumatic HEAD & SCALP: normocephalic and atraumatic Eye: COMMON NORMALS: Equal, round and reactive pupils present, EOMs intact bilaterally and no scleral icterus PUPIL: Yes Equal, round and reactive pupils present Resp: COMMON NORMALS: normal respiratory effort and No retractions Cardio: COMMON NORMALS: regular rate, regular rhythm and No murmurs present (Cardio) RATE: regular rate RHYTHM: regular rhythm GI: COMMON NORMALS: Normal to inspection, nondistended, normoactive bowel sounds present, Soft to palpation and non-tender PALPATION: Yes Soft to palpation OTHER: Flank and abdominal pain are not reproducible with palpation. Normal bowel sounds. Neuro: COMMON NORMALS: patient oriented x3 SENSORIUM/ORIENTATION: Yes alert Skin: COMMON NORMALS: no rashes or lesions noted GENERAL SKIN EXAM: no rashes or lesions noted Course Vital Signs: Vital signs: Vital Signs Temperature 97.7 F 05/09/25 01:52 Pulse Rate 94 05/09/25 05:00 Respiratory Rate 14 05/09/25 05:00 Blood Pressure 123/74 05/09/25 05:00 Pulse Oximetry 97 05/09/25 05:00 Oxygen Delivery Me thod Room Air 05/09/25 05:00 MDM - Abdominal Pain Medical Decision Making Patient is a 39-year-old male with acute right flank and RLQ pain, 10/10, with chills, fever, and vomiting; pain differs from prior stone episodes but onset/location raise concern for appendicitis or ureteral stone. Physical exam demonstrates soft, non-tender RLQ, clear lungs, and regular heart rhythm. DDx: Ureteral stone favored given flank radiation and benign abdominal exam; appendicitis remains possible though RLQ palpation non-tender. Pancreatitis unlikely due to low location of pain. Plan: CT abdomen/pelvis ordered to evaluate for stone vs appendicitis; continue opioid analgesia (morphine available as needed); no drug allergies simplifies contrast use. Pain much better with treatment. CT reveals a 3 to 4 mm right proximal ureteral stone which is consistent with exam. Patient will be discharged in stable and improved condition with prescription for Zofran, Flomax, Toradol, and Percocet with referral to urology should stone not pass spontaneously. Patient shows good understanding and agrees to the plan Lab Data 05/09/25 02:18 05/09/25 02:18 Labs/Radiology: Radiology Impressions Abdomen/Pelvis CT 05/09/25 02:09 IMPRESSION: 1. 3 x 4 mm right-sided proximal ureteral stone. Mild hydronephrosis. 2. Punctate nonobstructing bilateral renal calculi. 3. Hepatic steatosis. Laboratory Results WBC 11.29 10^3/uL (3.29-11.43) 05/09/25 02:18 RBC 4.72 10^6/uL (3.85-5.65) 05/09/25 02:18 Hgb 15.00 g/dL (11.27-16.99) 05/09/25 02:18 Hct 43.5 % (37-53) 05/09/25 02:18 MCV 92.2 fl (82-101) 05/09/25 02:18 MCH 31.8 pg (27-33) 05/09/25 02:18 MCHC 34.5 g/dL (30-55) 05/09/25 02:18 RDW 11.7 % (12.1-15.1) L 05/09/25 02:18 Plt Count 199 10^3/cmm (157-399) 05/09/25 02:18 MPV 9.2 fL (7.4-10.4) 05/09/25 02:18 Neut % (Auto) 71.7 % 05/09/25 02:18 Lymph % (Auto) 18.2 % 05/09/25 02:18 Cherry % (Auto) 8.5 % 05/09/25 02:18 Eos % (Auto) 0.4 % 05/09/25 02:18 Baso % (Auto) 0.8 % 05/09/25 02:18 Neut # (Auto) 8.09 10^3/uL (1.8-7.7) H 05/09/25 02:18 Lymph # (Auto) 2.1 10^3/uL (0.8-4.8) 05/09/25 02:18 Cherry # (Auto) 1.0 10^3/uL (0.2-0.9) H 05/09/25 02:18 Eos # (Auto) 0.0 10^3/uL (0.0-0.8) 05/09/25 02:18 Baso # (Auto) 0.1 10^3/uL (0.0-0.1) 05/09/25 02:18 Nucleated RBC % (auto) 0 % 05/09/25 02:18 Nucleated RBCs # 0.0 /100WBC 05/09/25 02:18 Sodium 140 mmol/L (136-145) 05/09/25 02:18 Potassium 4.3 mmol/L (3.5-5.1) 05/09/25 02:18 Chloride 99 mmol/L (98-107) 05/09/25 02:18 Carbon Dioxide 22 mmol/L (22-29) 05/09/25 02:18 Anion Gap 23.3 (5-19) H 05/09/25 02:18 BUN 16 mg/dL (6-20) 05/09/25 02:18 Creatinine 1.1 mg/dL (0.7-1.2) 05/09/25 02:18 GFR Calculation 75.3 mL/min (90-130) L 05/09/25 02:18 Glucose 160 mg/dL (65-115) H 05/09/25 02:18 Calculated Osmolality 295 mOsm/kg (285-295) 05/09/25 02:18 Calcium 8.5 mg/dL (8.5-10.5) 05/09/25 02:18 Total Bilirubin 0.2 mg/dL (0.15-1.2) 05/09/25 02:18 AST 31 U/L (0-40) 05/09/25 02:18 ALT 60 U/L (0-41) H 05/09/25 02:18 Alkaline Phosphatase 74 U/L (40-130) 05/09/25 02:18 Total Protein 7.3 g/dL (6.6-8.7) 05/09/25 02:18 Albumin 4.4 g/dL (3.5-5.2) 05/09/25 02:18 Globulin 2.9 g/dL (1.3-4.6) 05/09/25 02:18 Lipase 6 U/L (13-60) L 05/09/25 02:18 All radiology interpretation(s) finalized by discharge Discharge Plan Discharge Patient Disposition: Home Clinical Impression: Calculus of proximal right ureter Condition: Stable Prescriptions: New tamsulosin [Flomax] 0.4 mg capsule 0.4 mg PO DAILY Qty: 10 0RF ketorolac 10 mg tablet 10 mg PO Q8H PRN (Reason: pain) 4 Days Qty: 30 0RF oxycodone-acetaminophen [Percocet] 5-325 mg tablet 1 tab PO Q8H PRN (Reason: pain) Qty: 20 0RF ondansetron 4 mg tablet,disintegrating 4 mg PO Q8H PRN (Reason: nausea and vomiting) Qty: 20 0RF No Action sulfamethoxazole-trimethoprim [Bactrim DS] 800-160 mg tablet 1 tab PO BID 7 Days Qty: 14 0RF Discharge Orders: Discharge ED (Routine); Ordered 05/09/25 Ordered By: Dennis Phillips Patient Instructions: Ureteral Stones (ED), Opioid Safety, Pain Management, Patient Portal & Juan Antonio Instructions Activity Restrictions/Additional Instructions: Your stone is 3 to 4 mm in diameter and located on the proximal right ureter. There is an 80% chance of a passed spontaneously without need for urology to intervene. 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
--- NOTE | 2025-05-11 19:22 | DCPLANNER ---
Message sent to [facility] for referral
== END 2025-05-09 06:00 | disposition home or self-care (01) ==
PROVIDERS: Emergency Provider Student in an Organized Health Care Education/Training Program
DX: N20.1 Calculus of ureter (principal); I10 Essential (primary) hypertension
CPT/HCPCS: 36415; 74177; 80053; 83690; 85025; 96374; 96375; 96376; 99285; J1885; J2270; J2405